=== PATIENT | male | born 2000 | race Caucasian/White ===

== ENCOUNTER 2021-10-31 08:16 | Outpatient (CLI) | payer OTHER ==
[2021-10-31] MEDS ORDERED: Iopamidol 370 76% 100 ML VIAL ONE (08:39)
== END 2021-10-31 08:17 | disposition home or self-care (01) ==
LOC: CT 08:16
PROVIDERS: ATTEND Urology
DX: C62.11 Malignant neoplasm of descended right testis (principal); R91.8 Other nonspecific abnormal finding of lung field
CPT/HCPCS: 71260; 74177; Q9967